=== PATIENT | male | born 1995 | race African-American/Black ===

== ENCOUNTER 2017-05-28 12:22 | Emergency (ER) | payer OTHER ==
[~2017-05-28] VITALS: Ht 200.7 cm; Wt 91.0 kg
[2017-05-28 12:34] VITALS: BP 127/64
== END 2017-05-28 14:32 | disposition home or self-care (01) ==
LOC: ER 13:32
DX: M25.572 Pain in left ankle and joints of left foot (principal); Z88.0 Allergy status to penicillin
CPT/HCPCS: 73610; 99284

== ENCOUNTER 2018-09-30 16:10 | Emergency (ER) | payer MEDICAID, OTHER ==
[~2018-09-30] VITALS: Ht 205.7 cm; Wt 98.0 kg
[2018-09-30 17:54] LABS: CLARITY URINE CLEAR (CLEAR); COLOR URINE YELLOW (YELLOW); KETONES URINE NEGATIVE (NEGATIVE); LEUKOCYTE ESTERASE URINE 1+ (NEGATIVE); NITRITE URINE NEGATIVE (NEGATIVE); OCCULT BLOOD URINE NEGATIVE (NEGATIVE); PROTEIN URINE NEGATIVE (NEGATIVE); SPECIFIC GRAVITY URINE 1.011 (1.005-1.030); UROBILINOGEN URINE 0.2 E.U./dL (0.2-1.0)
[2018-09-30 21:37] VITALS: BP 143/78
[2018-09-30] MEDS ORDERED: AZITHROMYCIN 500 MG TABLET PO ONE (22:30)
[2018-09-30] MEDS ORDERED: CEFTRIAXONE SODIUM 250 MG/VIAL IM ONE (22:30)
[2018-09-30] MEDS ORDERED: LIDOCAINE HCL 1% 20ML VIAL (Pyxis) INJ INFIL ONE (22:45)
== END 2018-09-30 23:15 | disposition home or self-care (01) ==
LOC: ER 16:10
DX: N34.2 Other urethritis (principal); Z88.0 Allergy status to penicillin; Z91.018 Allergy to other foods
CPT/HCPCS: 81003; 96372; 99283; J0696; J3490